=== PATIENT | female | born 1935 | race Caucasian/White ===

== ENCOUNTER → 2016-09-14 | Outpatient (CLI) | payer MEDICARE, BC ==
[~2016-09-14] MED LIST: ALPR0.254 PO; CARV12.579 PO; COU3 PO; GABA-526 PO; GABA300C16 PO; LATA2.5D9 OP; LOSA100T47 PO; TADA20TA33 PO; TIMO5DRO26 OP; WARF4TAB52 PO; [UNRECOGNIZED DRUG - CODE] PO
--- NOTE | 2016-09-14 16:34 | RADRPT ---
PROCEDURE: XR bilateral hips. CLINICAL INDICATION: Hip pain TECHNIQUE: AP pelvis/AP and lateral right and left hip views available for review. COMPARISON: No prior studies are available for comparison. 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 There is diffuse osteopenia. There is partial resorption of the left lesser trochanter since the pre vious examination (query previous injury/ psoas avulsion). There is no evidence of loosening of the prosthesis. There is no evidence of hardware failure. No fractures, dislocation or osseous lesions are identified. The joints are unremarkable. There are normal soft tissues. IMPRESSION: Diffuse osteopenia Bilateral total hip replacements. Partial resorption of the left lesser trochanter since the previous examination (query previous inju ry/psoas avulsion) RPTAT: HGDB .Kendrick Cox MD, Date Time Electronically viewed and signed by .Kendrick Cox MD, on 09/14/2016 16:34 .B/
== END | disposition home or self-care (01) ==
LOC: HKI 15:21
PROVIDERS: ATTEND Orthopaedic Surgery
DX: T84.051A Periprosthetic osteolysis of internal prosthetic left hip joint, initial encounter (principal); Z96.643 Presence of artificial hip joint, bilateral
CPT/HCPCS: 73523; G0463

== ENCOUNTER → 2016-09-24 | Outpatient (CLI) | payer MEDICARE, BC ==
--- NOTE | 2016-09-24 13:50 | RADRPT ---
PROCEDURE: CT LEFT HIP CLINICAL INDICATION: Pain around the total hip arthroplasty. Bony erosion. Soft tissue mass.. TECHNIQUE: CT scan of the left hip was performed on a multi -slice scanner. No IV contrast was ad ministered. Coronal and sagittal reformatted images were obtained from the axial source images. Th e total exam DLP equals 1286.12 mGy-cm. The CDTI volume was 31.80 mGy. One or more of the following dose reduction techniques were used: - Automated exposure control. - Adjustment of the mA and/or kV according to patient size . - Use of iterative reconstruction technique. Images were reviewed on a high-resolution PACS workstation. COMPARISON: Multiple prior radiographs the most recent from 09/14/2016 FINDINGS: Osseous structures: There is a marked amount of osteolysis/bone loss noted in the subtrochanteric femur predominately in volving Gruen zones 1, 7,8 and 14 noting near complete loss of the lesser trochanter of the greater trochanter of those areas of bony resorption as well. No evidence for bulky osteolysis noted about the acetabular component. Soft tissues: There is distension of the pseudo capsule with a mild amount of dense material which appears to deco mpressed into the iliopsoas bursa and also the left greater trochanteric bursa noting a soft tissue mass also extending proximal in the region of the gluteal musculature and distally into the vastus l ateralis muscle with scattered areas of calcification. There is associated marked muscle atrophy of the gluteus medius and gluteus minimus muscles. Avulsion from the greater trochanteric insertion is not excluded. There is fatty atrophy of the short external rotators. Small reactive lymph nodes are noted in the left external iliac and inguinal regions. IMPRESSION: 1. 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 Loosening of the prosthesis cannot be excluded, presumably aseptic loosening, but fl uid sampling should be obtained to exclude an underlying infected prosthesis. 2. Marked amount of dense material coming from the pseudo capsule of the prosthesis and extending i nto the iliopsoas bursa, greater trochanteric bursa and vastus lateralis and intermedius muscles. T his could be related to wear induced synovitis or less likely an adverse local tissue reaction, but infection should also be excluded. 3. Marked fatty atrophy of the gluteus medius and gluteus minimus muscles, involvement of its tendo n insertions cannot be excluded. 4. Nonspecific, shoddy inguinal and external iliac lymphadenopathy. RPTAT: AA .Epifanio Saleh MD, MD Date Time Electronically viewed and signed by .Epifanio Saleh MD, MD on 09/24/2016 13:49 .d/
== END | disposition home or self-care (01) ==
LOC: C/S 11:02
PROVIDERS: ATTEND Orthopaedic Surgery
DX: M25.552 Pain in left hip (principal); Z96.642 Presence of left artificial hip joint
CPT/HCPCS: 73700

== ENCOUNTER → 2016-12-18 | Outpatient (CLI) | payer MEDICARE, BC ==
[~2016-12-18] MED LIST changes: +IOHEXOL 300MG/ML 30 ML BTL ONE
--- NOTE | 2016-12-18 17:18 | RADRPT ---
PROCEDURE: Left hip arthrogram and aspiration. CLINICAL INDICATION: Left hip pain. TECHNIQUE: Prior to the procedure, informed consent was obtained. The patient's name, date of , and procedure to be performed were verified. Using local anesthetic, sterile technique and fluo roscopic guidance, a 20-gauge spinal needle was advanced into the left hip joint. Five cc of Omnipa [id number] contrast was injected into the joint. 30 ml of cloudy serous fluid was aspirated and sent f or laboratory analysis. COMPARISON: No prior studies available for comparison. FINDINGS: Images demonstrate a total left hip arthroplasty. Subsequent images demonstrate contrast injection in the joint region. Fluoroscopy time is 0.2 minutes. 5 images were obtained with the image intensi fier. IMPRESSION: 1. Satisfactory left hip arthrogram and aspiration. RPTAT: QQ .Vicente Levin MD, MD Date Time Electronically viewed and signed by .Vicente Levin MD, on 12/18/2016 17:18 .R/
[2016-12-18 21:22] LABS: FLD RBC 2 /uL; FLD WBC 659 /cmm
[2016-12-18 21:53] LABS: FLD CLARITY CLOUDY; FLD COLOR YELLOW; FLD TYPE OTHERS
== END | disposition home or self-care (01) ==
LOC: RAD 13:17
PROVIDERS: ATTEND Orthopaedic Surgery
DX: M25.552 Pain in left hip (principal); Z96.642 Presence of left artificial hip joint
CPT/HCPCS: 20610; 77002; 87070; 89051; 89060; Q9967